=== PATIENT | female | born 1995 | race Caucasian/White ===

== ENCOUNTER 2020-07-12 11:54 | Inpatient (IN) | payer OTHER ==
[~2020-07-12] VITALS: Ht 157.5 cm; Wt 59.8 kg
[2020-07-12 12:57] LABS: BASOPHILS % (AUTO) 0.2 % (0.0-2.0); EOSINOPHILS % (AUTO) 0.4 % (1.0-6.0); HEMATOCRIT 39.1 % (36-46); HEMOGLOBIN 13.4 g/dL (12.0-16.0); LYMPHOCYTES # (AUTO) 1.4 K/uL (1.0-4.8); LYMPHOCYTES % (AUTO) 29.5 % (22.0-44.0); MEAN CORPUSCULAR HEMOGLOBIN 29.3 pg (26.0-34.0); MEAN CORPUSCULAR HGB CONC 34.3 G/dL (31.0-37.0); MEAN CORPUSCULAR VOLUME 85 fL (80-100); MONOCYTES # (AUTO) 0.4 K/uL (0.1-1.0); MONOCYTES % (AUTO) 7.8 % (2.0-9.0); NEUTROPHILS % (AUTO) 62.1 % (40.0-70.0); PLATELET COUNT (AUTO) 252 K/uL (150-450); RED BLOOD CELL COUNT(AUTO) 4.58 MIL/uL (4.00-5.20); RED CELL DISTRIBUTION WIDTH 13.2 % (11.5-14.5)
[2020-07-12 13:08] LABS: ANION GAP 8 mmol/L (8-16); CALCIUM, TOTAL 9.2 mg/dL (8.8-10.5); CARBON DIOXIDE 28 mmol/L (22-29); CHLORIDE 99 mmol/L (98-107); CREATININE 0.53 mg/dL (0.60-1.30); GLOMERULAR FILTR. RATE CALC > 60 mL/min (>60); GLUCOSE,RANDOM 177 mg/dL (70-110); POTASSIUM 4.5 mmol/L (3.5-5.1); SODIUM SERUM 135 mmol/L (136-145); UREA NITROGEN, BLOOD 13 mg/dL (7-18)
[2020-07-12 13:20] LABS: ALANINE AMINOTRANSFERASE 28 U/L (12-78); ALBUMIN 3.8 g/dL (3.4-5.0); ALKALINE PHOSPHATASE 93 U/L (46-116); ASPARTATE AMINOTRANSFERASE 14 U/L (15-37); BILIRUBIN,TOTAL 0.5 mg/dL (0.1-1.0); HCG,QUANTITATIVE < 1 mIU/mL (0-6); TOTAL PROTEIN, SERUM 7.5 g/dL (6.4-8.2)
[2020-07-12] MEDS ORDERED: CefTRIAXone 1 GM/DEXTROSE 50 ML IV ONE (14:45)
[2020-07-12] MEDS ORDERED: AZITHROMYCIN 500 MG/NS 250 ML IV ONE (14:45)
[2020-07-12 14:51] LABS: COVID AG,FIA SOURCE NASOPHARYNGEAL
[2020-07-12] MEDS ORDERED: ZOLPIDEM TARTRATE 5 MG TABLET PO PRN (15:15)
[2020-07-12] MEDS ORDERED: MAGNESIUM HYDROXIDE SUSPENSION 30 ML UDCUP PO PRN (15:15)
[2020-07-12] MEDS ORDERED: ACETAMINOPHEN 325 MG TABLET PO PRN (15:15)
[2020-07-12] MEDS ORDERED: INSULIN LISPRO 100 UNITS/ML SQ PRN (15:30)
[2020-07-12] MEDS ORDERED: DEXTROSE 50%-WATER 25 GM/50 ML SYRINGE IVP PRN ×2 (15:30)
[2020-07-12 17:33] VITALS: BP 113/57
[2020-07-12 20:00] VITALS: BP 102/59
[2020-07-12] MEDS: INSULIN LISPRO 100 UNITS/ML SQ PRN (21:06)
[2020-07-12 22:34] LABS: GLUCOMETER DEV NAME(LOC) 4E.2; GLUCOSE,POINT OF CARE 215 MG/DL (70-110)
[2020-07-13] MEDS ORDERED: SODIUM CHLORIDE 3% 15 ML NEB SOLUTION NEB ONE ×3 (02:18→20:16)
[2020-07-13 04:37] VITALS: BP 99/50
[2020-07-13 08:24] VITALS: BP 102/70
[2020-07-13] MEDS: FAMOTIDINE 20 MG TABLET PO SCH (09:12)
[2020-07-13] MEDS ORDERED: 0.9% SODIUM CHLORIDE 5 ML NEB SOLUTION NEB ONE ×2 (11:00→20:26)
[2020-07-13] MEDS: INSULIN LISPRO 100 UNITS/ML SQ PRN ×3 (11:37→21:27)
[2020-07-13 15:14] LABS: GLUCOMETER DEV NAME(LOC) 4E.2; GLUCOSE,POINT OF CARE 97 MG/DL (70-110)
[2020-07-13 15:14] LABS: GLUCOMETER DEV NAME(LOC) 4E.2; GLUCOSE,POINT OF CARE 208 MG/DL (70-110)
[2020-07-13 17:04] VITALS: BP 100/58
[2020-07-13 20:02] LABS: GLUCOMETER DEV NAME(LOC) 4E.2; GLUCOSE,POINT OF CARE 174 MG/DL (70-110)
[2020-07-13 20:19] VITALS: BP 100/62
[2020-07-13 23:35] LABS: GLUCOMETER DEV NAME(LOC) 6S.1; GLUCOSE,POINT OF CARE 306 MG/DL (70-110)
[2020-07-14 05:03] VITALS: BP 105/68
[2020-07-14] MEDS ORDERED: SODIUM CHLORIDE 3% 15 ML NEB SOLUTION NEB ONE (05:40)
[2020-07-14] MEDS ORDERED: 0.9% SODIUM CHLORIDE 5 ML NEB SOLUTION NEB ONE (05:40)
[2020-07-14 06:16] LABS: GLUCOMETER DEV NAME(LOC) 6S.1; GLUCOSE,POINT OF CARE 117 MG/DL (70-110)
[2020-07-14 08:10] VITALS: BP 103/72
[2020-07-14 08:36] LABS: HIV 1-2 SCREEN 4TH GEN W/RFLX Non Reactive (Non Reactive)
[2020-07-14] MEDS: FAMOTIDINE 20 MG TABLET PO SCH (08:56)
[2020-07-14] MEDS: INSULIN LISPRO 100 UNITS/ML SQ PRN ×3 (11:42→19:56)
[2020-07-14 13:07] LABS: GLUCOMETER DEV NAME(LOC) 4E.2; GLUCOSE,POINT OF CARE 221 MG/DL (70-110)
[2020-07-14 18:03] LABS: GLUCOMETER DEV NAME(LOC) 6S.1; GLUCOSE,POINT OF CARE 179 MG/DL (70-110)
[2020-07-14 19:00] VITALS: BP 97/47
[2020-07-15 01:05] LABS: GLUCOMETER DEV NAME(LOC) 4E.2; GLUCOSE,POINT OF CARE 276 MG/DL (70-110)
[2020-07-15 07:27] VITALS: BP 98/60
[2020-07-15 07:59] LABS: GLUCOMETER DEV NAME(LOC) 6S.1; GLUCOSE,POINT OF CARE 122 MG/DL (70-110)
[2020-07-15] MEDS: FAMOTIDINE 20 MG TABLET PO SCH (08:22)
[2020-07-15] MEDS: INSULIN LISPRO 100 UNITS/ML SQ PRN ×3 (11:25→20:51)
[2020-07-15 13:20] LABS: GLUCOMETER DEV NAME(LOC) 4E.2; GLUCOSE,POINT OF CARE 296 MG/DL (70-110)
[2020-07-15 17:54] LABS: GLUCOMETER DEV NAME(LOC) 4E.2; GLUCOSE,POINT OF CARE 194 MG/DL (70-110)
[2020-07-15 20:47] VITALS: BP 100/56
[2020-07-15 21:08] LABS: GLUCOMETER DEV NAME(LOC) 6S.1; GLUCOSE,POINT OF CARE 280 MG/DL (70-110)
[2020-07-15 22:41] LABS: QUANTIFERON, TB GOLD PLUS Positive (Negative)
[2020-07-16 05:12] VITALS: BP 100/66
[2020-07-16] MEDS: INSULIN LISPRO 100 UNITS/ML SQ PRN ×2 (05:58→11:35)
[2020-07-16 06:11] LABS: GLUCOMETER DEV NAME(LOC) 6S.1; GLUCOSE,POINT OF CARE 145 MG/DL (70-110)
[2020-07-16] MEDS: FAMOTIDINE 20 MG TABLET PO SCH (08:03)
[2020-07-16 08:34] VITALS: BP 95/64
[2020-07-16 13:00] VITALS: BP 107/79
[2020-07-16 14:07] LABS: GLUCOMETER DEV NAME(LOC) 4E.2; GLUCOSE,POINT OF CARE 187 MG/DL (70-110)
== END 2020-07-16 15:02 | DRG 192 ==
LOC: EMS 11:56 → 6S 15:15
PROVIDERS: ADMIT Internal Medicine; ATTEND Internal Medicine
DX: J47.9 Bronchiectasis, uncomplicated (principal); T18.9XXA Foreign body of alimentary tract, part unspecified, initial encounter; F19.10 Other psychoactive substance abuse, uncomplicated; E11.9 Type 2 diabetes mellitus without complications; X58.XXXA Exposure to other specified factors, initial encounter; K80.20 Calculus of gallbladder without cholecystitis without obstruction; Z20.828 Contact with and (suspected) exposure to other viral communicable diseases; Z86.11 Personal history of tuberculosis; Y93.89 Activity, other specified; Y92.89 Other specified places as the place of occurrence of the external cause; Y99.8 Other external cause status
CPT/HCPCS: 71250; 74176; 86480; 86635; 87015; 87040; 87206; 87389; 87426; 87449; 87556; 87798; 94640; G0480; J0456; J0696; 36415-L1; 36415-TC; 71045-TC; 71046; 71046-TC; U0003-CS